=== PATIENT | female | born 1970 | race Hispanic/Latino ===

== ENCOUNTER 2024-11-12 08:33 | Day surgery (SDC) | payer BC ==
[2024-11-10 14:38] VITALS: BP 98/50; PULSE 63; RESP 17; TEMP 97.9
[2024-11-10 14:42] LABS: IMMATURE GRANULOCYTE ABSOLUTE 0.00 K/uL (0-1); NUCLEATED RED BLOOD CELLS 0.0 % (0.0-0.19); PLATELET COUNT (AUTO) 57 K/uL (130-400); RED BLOOD CELL COUNT(AUTO) 4.07 MIL/uL (4.00-5.50); RED CELL DISTRIBUTION WIDTH 12.6 % (11.0-15.5); WHITE BLOOD COUNT (AUTO) 2.0 K/uL (4.8-10.8)
[2024-11-10 14:49] LABS: INR 1.25 (0.85-1.15)
[2024-11-10 14:53] LABS: CREATININE 0.5 mg/dL (0.5-1.0); GLOMERULAR FILTR. RATE CALC 111.0 mL/min (>90); GLUCOSE,RANDOM 85.0 mg/dL (70-105); SODIUM SERUM 141.0 mmol/L (136-145); UREA NITROGEN, BLOOD 8.0 mg/dL (7-18)
[2024-11-10 15:37] LABS: APPEARANCE,URINE CLEAR (CLEAR); GLUCOSE, URINE (UA) NEGATIVE (NEGATIVE); LEUKOCYTE ESTERASE ,URINE NEGATIVE Leu/uL (NEGATIVE); NITRATE,URINE NEGATIVE (NEGATIVE); OCCULT BLOOD,URINE NEGATIVE (NEGATIVE)
[2024-11-10 15:43] LABS: ADD UA MICROSCOPIC YES
[2024-11-10 15:45] LABS: HYALINE CASTS, URINE 0-1 /LPF (0-1 /LPF); OTHER CASTS, URINE 1 /LPF (None Seen); SQUAMOUS EPITHELIAL CELL,UR RARE /HPF (0-2)
--- NOTE | 2024-11-10 23:25 | HMCIMG ---
EXAM: CR Chest, single view CLINICAL HISTORY: Preoperative COMPARISON: None provided. FINDINGS: The lungs show no infiltrate or other acute findings. No pleural effusion or pneumothorax. The cardiomediastinal silhouette is within normal limits. No acute osseous abnormality. Mild degenerative changes in the bilateral acromioclavicular joint. IMPRESSION: No acute cardiopulmonary pathology is evident. /[place]
--- NOTE | 2024-11-11 06:32 | EKG ---
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
--- NOTE | 2024-11-11 10:41 | NUR ---
RE:LABS REPORTED CBC RESULTS AND PT/INR RESULTS TO HARSHIL BARRETO NP. RECEIVED ORDERS FOR 1 UNIT PLATELETS TO BE GIVEN 40 MIN PRIOR TO CATH PROCEDURE AND PREMED SOLUMEDROL/BENADRYL PRIOR TO PLATELETS FOR SHELLFISH/SHRIMP ALLERGY.
[~2024-11-12] VITALS: Ht 167.6 cm; Wt 79.2 kg
[2024-11-12] VITALS (11 sets, daily range): BP systolic 93–123; BP diastolic 46–70; PULSE 65–80; RESP 15–21; TEMP 97.2–98.2
[~2024-11-12 08:33] MED LIST: CALC-322 PO; CARV6.25 PO; CHOL100046 PO; CRAN500T4 PO; CYAN250010 PO; FOLI1 PO; HYDR200T75 PO; LACT1CAP70 PO; RIFA550T PO
[2024-11-12] MEDS: FAMOTIDINE 20MG VIAL IV ONE (11:32)
[2024-11-12] MEDS ORDERED: LIDOCAINE HCL 400MG/20ML VIAL ONE (12:05)
[2024-11-12] MEDS ORDERED: IOHEXOL 350 MG/ML 100ML INFUS..BTL IV ONE (12:05)
[2024-11-12] MEDS ORDERED: NITROGLYCERIN 50MG VIAL ONE (12:06)
[2024-11-12] MEDS ORDERED: HEParin-NS 1,000 UNIT/500 ML 1,000 ML IV ONE (12:06)
[2024-11-12] MEDS ORDERED: SODIUM BICARB 50MEQ 50ML VIAL 50 ML ONE (12:12)
[2024-11-12] MEDS ORDERED: MIDAZOLAM HCL 1 MG/ML 2ML VIAL ONE ×2 (12:31→12:39)
[2024-11-12] MEDS ORDERED: IOHEXOL-350 50ML VIAL IV ONE (12:35)
--- NOTE | 2024-11-12 13:51 | PR ---
PROCEDURES: * Left heart catheterization. * Left ventriculogram. * Selective diagnostic right and left coronary arteriogram. INDICATIONS: The patient is being evaluated for preoperative surgical evaluation and consideration for liver transplant. The transplant center requirement is to perform a cardiac catheterization. DESCRIPTION OF PROCEDURE: The patient was taken to the cardiac orthodontic lab technician after appropriate operative consents were signed. She was prepped and draped in the usual fashion. After conscious sedation was administered, the right radial artery region was infiltrated with 2% Xylocaine without epinephrine. A 6-[place] slender sheath was advanced in a retrograde fashion under modified Seldinger technique after cannulation of the vessel. At this point, a TIG-4 catheter was advanced and engaged in the ostium of the right coronary artery. This was imaged in multiplane. This was a large vessel that gave rise to an acute marginal of the PDA and a PLVB. This was free of disease. Multiple catheters were utilized to cannulate the left main coronary artery; however, it had a fairly superior orientation and was difficult to cannulate; however, we were able to utilize an FL3 guide catheter that was engaged in the ostium of the left main. Imaging was obtained in multiplane. The left main was a large vessel that was free of disease. It trifurcated into the LAD, intermediate, and circumflex. The LAD was a moderately large vessel that was free of disease. It gave rise to several diagonals and septal perforators. The intermediate was a moderately-sized vessel with no significant stenotic lesions. The circumflex was a large vessel that gave rise to several marginal branches and was free of disease. At this point, a pigtail catheter was placed in the left ventricular cavity. Left ventricular end-diastolic pressure was measured. Pullback revealed no evidence of aortic stenosis. A ventriculogram was performed via pigtail, which was placed in the left ventricular cavity. This revealed preserved LV systolic function with normal wall motion. The EF was estimated at 65%. There was no MR and no on pullback. At this point, the procedure was completed, radial band was applied. The patient tolerated the procedure well and left the cardiac orthodontic lab technician in stable condition. FINAL IMPRESSION: * Normal coronary arteries. * Normal LV systolic function and diastolic function. * No aortic stenosis. * No mitral insufficiency. PLAN: Continue to optimize medical management and the patient has no contraindications to proceeding with her planned transplant surgery. TID: [id number] RECEIPT: [id number]
[2024-11-12] MEDS ORDERED: 0.9%NACL 1000ML 1,000 ML IV SCH (14:00)
--- NOTE | 2024-11-12 14:49 | NUR ---
CAME ASKING IF HE CAN GET PT OUT OF BED I DID TELL HIM D/T THE HEAVY SEDATION AND BENADRYL GIVEN DR. AQUINO ORDERED 2 HOURS OF BEDREST. I DID SEE TAKING PT OUT OF BED
--- NOTE | 2024-11-12 14:53 | NUR ---
REPORT GIVEN TO ANUSHKA CHISHOLM
--- NOTE | 2024-11-12 18:03 | NUR ---
Vasband removed at this time, right radial cath site appears clean, dry and intact, site free of bleeding. Dressed with sterile [id number], tegaderm and wrapped with coban.
== END 2024-11-12 19:24 | disposition home or self-care (01) ==
LOC: DAH 08:33
PROVIDERS: ATTEND Internal Medicine Cardiovascular Disease
DX: I25.10 Atherosclerotic heart disease of native coronary artery without angina pectoris (principal); I10 Essential (primary) hypertension; C22.0 Liver cell carcinoma; K74.60 Unspecified cirrhosis of liver; M32.9 Systemic lupus erythematosus, unspecified; Z98.890 Other specified postprocedural states; Z79.899 Other long term (current) drug therapy
CPT/HCPCS: 80048; 83880; 85025; 85610; 85730; 86850; 86900; 86901; 81001; 36415; 71045; 93005; 93458; 99156; 99157 ×2; C1769; C1894 ×2; C1887; J1200 ×2; J3490 ×5; J3010 ×2; J2919 ×2; J1644 ×2; J2250 ×2; Q9967; A4215; A4657; A4222; A4221; A4663; A4216; A4606; Q9965; A4223 ×3